=== PATIENT | female | born 1945 | race Caucasian/White ===

== ENCOUNTER 2023-12-26 11:00 | Outpatient (RCR) | payer MEDICARE, SELFPAY | END 2024-01-07 07:55 | disposition home or self-care (01) | LOC: PT 11:00 | PROVIDERS: Visit Provider Orthopaedic Surgery | DX: M25.552 Pain in left hip (principal); Z96.642 Presence of left artificial hip joint | CPT/HCPCS: 97010; 97014; 97110; 97116; 97163; 97164; 97530; G0283 ==

== ENCOUNTER 2025-02-24 12:01 | Outpatient (CLI) | payer MEDICARE, SELFPAY ==
--- OUTSIDE RECORDS SUMMARY | 2025-02-24 12:03 | XMS_ITS | Data Portability ---
Author Organization [facility] Address [address] [place] [address] Assessment Encounter Date Assessment Date Assessment LastModified by Organization Details LastModified Time 07/13/2024 07/13/2024 Patient presente d to office today for their Medicare Annual Wellness Visit. Education was provided on healthy nutrition, including a diet rich in fruits and vegetables, minimizing simple carbohydrates, salt, and saturated fats. Encouraged regular cardiovascular exercise such as walking at least 30 minutes daily, 5 times per week. Emphasized preventive health measures and educated pt on fall prevention and community-based lifestyle interventions to help reduce health risks and promote healthy living. Not available 07/13/2024 09:17:13 Plan of Treatment Reminders Order Date Submit Date Provider Last Modified By Organization Details Last Modified Time Details Appointments None recorded. Lab TSH, ultra-sensi tive, serum 2023 024 [facility], [address] [place], [address], 4 22:06:11 lipid panel, serum 2023 024 [facility] [address] [place], [address], 4 22:06:10 unlisted lab - gabapentin, urine 2023 024 [facility] [address] [place], [address], 4 22:06:11 drug screen, urine 2023 024 [facility]), [address] [place], [address], 4 22:06:08 CBC w/ auto diff 2023 024 [facility] [address] [place], [address], 4 22:06:09 CMP, serum or plasma 2023 024 [facility] [address] [place], [address], 4 22:06:10 Referral None recorded. Procedures None recorded. Surgeries None recorded. Imaging None recorded. Medication Orders levothyroxi ne 50 mcg tablet 2024 025 [facility], [address] [place] [address], [address], 5 09:48:58 citalopram 20 mg tablet 2024 025 [facility], [address] [place] [address], [address], 5 10:32:54 rosuvastati n 20 mg tablet 2024 025 [facility], [address] [place] [address], [address], 5 09:48:59 Depo-Medrol 40 mg/mL suspension for injection 2024 025 [email or web address] Not available 5 15:14:28 diltiazem CD 300 mg capsule,ext ended release 24 hr 2024 025 [facility], [address] [place] [address], [address], 5 09:48:58 valsartan 80 mg tablet 2024 025 [facility], [address] [place] [address], [address], 5 10:32:52 cyanocobala min (vit B-12) 1,000 mcg/mL injection solution 2024 [email or web address] Not available 15:13:20 azithromyci n 250 mg tablet 2024 025 [facility], [address] [place] [address], [address], 5 14:19:40 promethazin e-DM 6.25 mg-15 mg/5 mL oral syrup 2024 025 [facility], [address] [place] [address], [address], 5 16:25:40 gabapentin 400 mg capsule 2024 025 [facility], [address] [place] [address], [address], 5 13:19:06 valsartan 40 mg tablet 2024 025 [facility], [address] [place] [address], [address], 5 16:25:41 levothyroxi ne 50 mcg tablet 2023 024 [facility], [address] [place] [address], [address], 5 12:55:31 rosuvastati n 20 mg tablet 2023 024 [facility], [address] [place] [address], [address], 5 13:19:06 gabapentin 400 mg capsule 2023 024 [facility], [address] [place] [address], [address], 5 14:42:11 valacyclovi r 500 mg tablet 2023 024 [facility], [address] [place] [address], [address], 4 13:06:45 citalopram 20 mg tablet 2023 024 [facility], [address] [place] [address], [address], 4 13:06:46 valsartan 40 mg tablet 2023 024 [facility], [address] [place] [address], [address], 5 15:00:03 diltiazem CD 300 mg capsule,ext ended release 24 hr 2023 024 [facility], [address] [place] [address], [address], 5 10:17:42 gabapentin 400 mg capsule 2023 024 [facility], [address] [place] [address], [address], 4 12:17:47 valacyclovi r 500 mg tablet 2023 024 [facility], [address] [place] [address], [address], 4 17:51:25 Patient TargetsNo targets recorded. Patient Instructions Encounter Date Encounter Id Patient Instructions Last Modified By Organization Details Last Modified Time 07/13/2024 [id number] advance care planning: care instructions Not available 07/13/2024 09:21:50 Discussed and explained advance directives such as standard forms to the patient. Face to face discussion lasted for a duration of _3__ minutes. Not available 07/13/2024 09:18:44 Reason for Referral None Reported. Results Created Date Observation Date Name Description Value Unit Range Abnormal Flag Note LastModifiedBy Organization Detail LastModifiedTime 07/13/20 24 07/15/2024 DRUG PROFI LE,UR ,9 DRUGS ,BUND amphetamines , urine Negati ve NG/mL cutoff =1000 Amphe tamin e test inclu rebekah Amphe tamin e and Metha mphet amine . Not Available [facility] ([facility]) [address] [place], [address], 07/15/2024 22:06:08 07/13/20 24 07/15/2024 DRUG PROFI LE,UR ,9 DRUGS ,BUND barbiturate Negati ve NG/mL cutoff =300 Not Available [facility] ([facility]) [address] [place], [address], 07/15/2024 22:06:08 07/13/20 24 07/15/2024 DRUG PROFI LE,UR ,9 DRUGS ,BUND benzodiazepi luisana Negati ve NG/mL cutoff =300 Not Available [facility] ([facility]) [address] [place], [address], 07/15/2024 22:06:08 07/13/20 24 07/15/2024 DRUG PROFI LE,UR ,9 DRUGS ,BUND cannabinoid Negati ve NG/mL cutoff =50 Not Available [facility] ([facility]) [address] [place], [address], 07/15/2024 22:06:08 07/13/20 24 07/15/2024 DRUG PROFI LE,UR ,9 DRUGS ,BUND cocaine (metab.) Negati ve NG/mL cutoff =300 Not Available [facility] ([facility]) [address] [place], [address], 07/15/2024 22:06:08 07/13/20 24 07/15/2024 DRUG PROFI LE,UR ,9 DRUGS ,BUND opiates Negati ve NG/mL cutoff =300 Opiat e test inclu rebekah Codei ne and Morph ine only. Not Available [facility] ([facility]) [address] [place], [address], 07/15/2024 22:06:08 07/13/20 24 07/15/2024 DRUG PROFI LE,UR ,9 DRUGS ,BUND phencyclidin e Negati ve NG/mL cutoff =25 Not Available [facility] ([facility]) [address] [place], [address], 07/15/2024 22:06:08 07/13/20 24 07/15/2024 DRUG PROFI LE,UR ,9 DRUGS ,BUND methadone screen, urine Negati ve NG/mL cutoff =300 Not Available [facility] ([facility]) [address] [place], [address], 07/15/2024 22:06:08 07/13/20 24 07/15/2024 DRUG PROFI LE,UR ,9 DRUGS ,BUND propoxyphene , urine Negati ve NG/mL cutoff =300 Not Available [facility] ([facility]) [address] [place], [address], 07/15/2024 22:06:08 07/13/20 24 07/14/2024 CBC WITH DIFFE RENTI AL/PL ATELE T WBC 6.9 x10e3 /uL 3.4-10 .8 normal Eff ectiv e Decem elana 2023 [place] [id number] WBC will be made* * non-o rdera ble as a stand -fely e order code. Not Available [facility] ([facility]) [address] [place], [address], 07/15/2024 22:06:09 07/13/20 24 07/14/2024 CBC WITH DIFFE RENTI AL/PL ATELE T RBC 4.55 x10e6 /uL 3.77-5 .28 normal Not Available [facility] ([facility]) [address] [facility], [place], [address], 07/15/2024 22:06:09 07/13/20 24 07/14/2024 CBC WITH DIFFE RENTI AL/PL ATELE T hemoglobin 13.7 g/dL 11.1-1 5.9 normal Not Available [facility] ([facility]) [address] [facility], [place], [address], 07/15/2024 22:06:09 07/13/20 24 07/14/2024 CBC WITH DIFFE RENTI AL/PL ATELE T hematocrit 43.5 % 34.0-4 6.6 normal Not Available [facility] ([facility]) [address] [facility], [place], [address], 07/15/2024 22:06:09 07/13/20 24 07/14/2024 CBC WITH DIFFE RENTI AL/PL ATELE T MCV 96 fL 79-97 normal Not Available [facility] ([facility]) [address] [place], [address], 07/15/2024 22:06:09 07/13/20 24 07/14/2024 CBC WITH DIFFE RENTI AL/PL ATELE T MCH 30.1 pg 26.6-3 3.0 normal Not Available [facility] ([facility]) [address] [place], [address], 07/15/2024 22:06:09 07/13/20 24 07/14/2024 CBC WITH DIFFE RENTI AL/PL ATELE T MCHC 31.5 g/dL 31.5-3 5.7 normal Not Available [facility] ([facility]) [address] [place], [address], 07/15/2024 22:06:09 07/13/20 24 07/14/2024 CBC WITH DIFFE RENTI AL/PL ATELE T RDW 12.9 % 11.7-1 5.4 Not Available [facility] ([facility]) [address] [facility], [place], [address], 07/15/2024 22:06:09 07/13/20 24 07/14/2024 CBC WITH DIFFE RENTI AL/PL ATELE T platelets 377 x10e3 /uL 150-45 0 normal Not Available [facility] ([facility]) [address] [facility], [place], [address], 07/15/2024 22:06:09 07/13/20 24 07/14/2024 CBC WITH DIFFE RENTI AL/PL ATELE T neutrophils 58 % not estab. normal Not Available [facility] ([facility]) [address] [facility], [place], [address], 07/15/2024 22:06:09 07/13/20 24 07/14/2024 CBC WITH DIFFE RENTI AL/PL ATELE T lymphs 27 % not estab. normal Not Available [facility] ([facility]) [address] [facility], [place], [address], 07/15/2024 22:06:09 07/13/20 24 07/14/2024 CBC WITH DIFFE RENTI AL/PL ATELE T monocytes 9 % not estab. normal Not Available [facility] ([facility]) [address] [facility], [place], [address], 07/15/2024 22:06:09 07/13/20 24 07/14/2024 CBC WITH DIFFE RENTI AL/PL ATELE T eos 5 % not estab. normal Not Available [facility] ([facility]) [address] [facility], [place], [address], 07/15/2024 22:06:09 07/13/20 24 07/14/2024 CBC WITH DIFFE RENTI AL/PL ATELE T basos 1 % not estab. 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 0 normal Not Available [facility] ([facility]) [address] [place], [address], 07/15/2024 22:06:09 07/13/20 24 07/14/2024 CBC WITH DIFFE RENTI AL/PL ATELE T lymphs (absolute) 1.9 x10e3 /uL 0.7-3. 1 normal Not Available [facility] ([facility]) [address] [place], [address], 07/15/2024 22:06:09 07/13/20 24 07/14/2024 CBC WITH DIFFE RENTI AL/PL ATELE T monocytes(ab solute) 0.6 x10e3 /uL 0.1-0. 9 normal Not Available [facility] ([facility]) [address] [place], [address], 07/15/2024 22:06:09 07/13/20 24 07/14/2024 CBC WITH DIFFE RENTI AL/PL ATELE T eos (absolute) 0.3 x10e3 /uL 0.0-0. 4 normal Not Available [facility] ([facility]) [address] [place], [address], 07/15/2024 22:06:09 07/13/20 24 07/14/2024 CBC WITH DIFFE RENTI AL/PL ATELE T baso (absolute) 0.1 x10e3 /uL 0.0-0. 2 normal Not Available [facility] ([facility]) [address] [facility], [place], [address], 07/15/2024 22:06:09 07/13/20 24 07/14/2024 CBC WITH DIFFE RENTI AL/PL ATELE T immature granulocytes 0 % not estab. Not Available [facility] ([facility]) [address] [facility], [place], [address], 07/15/2024 22:06:09 07/13/20 24 07/14/2024 CBC WITH DIFFE RENTI AL/PL ATELE T immature grans (abs) 0.0 x10e3 /uL 0.0-0. 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 METAB OLIC PANEL (14) glucose 118 mg/dL 70-99 above high normal Not Available [facility] ([facility]) [address] [facility], [place], [address], 07/15/2024 22:06:10 07/13/20 24 07/14/2024 COMP. METAB OLIC PANEL (14) BUN 10 mg/dL 8-27 normal Not Available [facility] ([facility]) [address] [place], [address], 07/15/2024 22:06:10 07/13/20 24 07/14/2024 COMP. METAB OLIC PANEL (14) creatinine 0.89 mg/dL 0.57-1 .00 normal Not Available [facility] ([facility]) [address] [place] [place], [address], 07/15/2024 22:06:10 07/13/20 24 07/14/2024 COMP. METAB OLIC PANEL (14) eGFR 66 mL/mi n/1.7 3 >59 normal Not Available [facility] ([facility]) [address] [place] [place], [address], 07/15/2024 22:06:10 07/13/20 24 07/14/2024 COMP. METAB OLIC PANEL (14) BUN/creatini ne ratio 11 12-28 below low normal Not Available [facility] ([facility]) [address] [place] [place], [address], 07/15/2024 22:06:10 07/13/20 24 07/14/2024 COMP. METAB OLIC PANEL (14) sodium 138 mmol/ L 134-14 4 normal Not Available [facility] ([facility]) [address] [place] [place], [address], 07/15/2024 22:06:10 07/13/20 24 07/14/2024 COMP. METAB OLIC PANEL (14) potassium 4.5 mmol/ L 3.5-5. 2 normal Not Available [facility] ([facility]) [address] [place], [address], 07/15/2024 22:06:10 07/13/20 24 07/14/2024 COMP. METAB OLIC PANEL (14) chloride 102 mmol/ L 96-106 normal Not Available [facility] ([facility]) [address] [place] [place], [address], 07/15/2024 22:06:10 07/13/20 24 07/14/2024 COMP. METAB OLIC PANEL (14) carbon dioxide, total 22 mmol/ L 20-29 normal Not Available [facility] ([facility]) [address] [place] [place], [address], 07/15/2024 22:06:10 07/13/20 24 07/14/2024 COMP. METAB OLIC PANEL (14) calcium 10.3 mg/dL 8.7-10 .3 normal Not Available [facility] ([facility]) [address] [place] [place], [address], 07/15/2024 22:06:10 07/13/20 24 07/14/2024 COMP. METAB OLIC PANEL (14) protein, total 8.0 g/dL 6.0-8. 5 normal Not Available [facility] ([facility]) [address] [place] [place], [address], 07/15/2024 22:06:10 07/13/20 24 07/14/2024 COMP. METAB OLIC PANEL (14) albumin 4.5 g/dL 3.8-4. 8 normal Not Available [facility] ([facility]) [address] [place] [place], [address], 07/15/2024 22:06:10 07/13/20 24 07/14/2024 COMP. METAB OLIC PANEL (14) globulin, total 3.5 g/dL 1.5-4. 5 Not Available [facility] ([facility]) [address] [place], [address], 07/15/2024 22:06:10 07/13/20 24 07/14/2024 COMP. METAB OLIC PANEL (14) bilirubin, total 0.3 mg/dL 0.0-1. 2 normal Not Available [facility] ([facility]) [address] [place], [address], 07/15/2024 22:06:10 07/13/20 24 07/14/2024 COMP. METAB OLIC PANEL (14) alkaline phosphatase 106 IU/L 44-121 normal Not Available [facility] ([facility]) [address] [place], [address], 07/15/2024 22:06:10 07/13/20 24 07/14/2024 COMP. METAB OLIC PANEL (14) AST (SGOT) 18 IU/L 0-40 normal Not Available [facility] ([facility]) [address] [place] [place], [address], 07/15/2024 22:06:10 07/13/20 24 07/14/2024 COMP. METAB OLIC PANEL (14) ALT (SGPT) 12 IU/L 0-32 normal Not Available [facility] ([facility]) [address] [facility], [place], [address], 07/15/2024 22:06:10 07/13/20 24 07/14/2024 LIPID PANEL cholesterol, total 132 mg/dL 100-19 9 normal Not Available [facility] ([facility]) [address] [place], [address], 07/15/2024 22:06:10 07/13/20 24 07/14/2024 LIPID PANEL triglyceride s 129 mg/dL 0-149 normal Not Available [facility] ([facility]) [address] [place], [address], 07/15/2024 22:06:10 07/13/20 24 07/14/2024 LIPID PANEL HDL cholesterol 50 mg/dL >39 normal Not Available [facility] ([facility]) [address] [place], [address], 07/15/2024 22:06:10 07/13/20 24 07/14/2024 LIPID PANEL VLDL cholesterol heide 23 mg/dL 5-40 Not Available [facility] ([facility]) [address] [place], [address], 07/15/2024 22:06:10 07/13/20 24 07/14/2024 LIPID PANEL LDL chol calc ([facility]) 59 mg/dL 0-99 Not Available [facility] ([facility]) [address] [facility], [place], [address], 07/15/2024 22:06:10 07/13/20 24 07/14/2024 LIPID PANEL LDL calc 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 Problems Name Problem SNOMED Code Status Onset Date Resolution Date Notes Provider Name and Address Organization Details Recorded Time Postherp etic neuralgi a 4278760 Active 2023 Marlene Acosta APRN [address] [place], [address] , [employer] 4 09:18:00 Essentia l hyperten terell 90127318 Active 2023 Marlene Acosta APRN [address] [place], [address] , [employer] 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 5 14:45:49 Gouty arthriti s of right foot 20347877401 39250 Active 2024 Marlene Acosta APRN [address] [place], [address] , [employer] 5 14:46:48 Foot pain 26189366 Active 2024 Marlene Acosta APRN [address] [place], [address] , [employer] 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 2 10:18:55 Iodine deficien cy syndrome 263142224 Completed 201607/16/2022 Problem Code: E01.8; Problem Code Type: ICD-10; PILLO CELESTIN null, [employer] 2 10:18:55 Hypothyr oidism 64604643 Active 2019 Not Available [facility] 2 21:22:01 Mixed hyperlip idemia 136968836 Active 2016 Problem Code: E78.2; Problem Code Type: ICD-10; Not Available [facility] 2 21:22:01 Mild major depressi on, single episode 58732923 Completed 201707/16/2022 Problem Code: F32.0; Problem Code Type: ICD-10; PILLO CELESTIN null, [employer] 2 10:18:55 Otitis externa of bilatera l ears 78975966702 95504 Completed 201907/16/2022 Problem Code: H60.333; Problem Code Type: ICD-10; PILLO TETEJOSEPH null, [employer] 2 10:18:55 Bilatera l earache 189938334 Completed 201711/03/2017 Not Available [facility] 2 21:22:01 Hyperten sive disorder 44822163 Completed 201610/20/2017 Problem Code: I10; Problem Code Type: ICD-10; Not Available [facility] 2 21:22:01 Acute maxillar y sinusiti s 64159081 Completed 201605/19/2017 Problem Code: J01.00; Problem Code Type: ICD-10; Not Available [facility] 2 21:22:01 Acute pharyngi tis 329852487 Completed 201605/19/2017 Problem Code: J02.8; Problem Code Type: ICD-10; Not Available [facility] 2 21:22:01 Mild recurren t major depressi on 00191411 Active 2016 Problem Code: F33.0; Problem Code Type: ICD-10; Not Available [facility] 2 21:22:01 Acute bronchit is 41153389 Completed 201802/29/2020 Problem Code: J20.9; Problem Code Type: ICD-10; Not Available [facility] 2 21:22:01 Seasonal allergic rhinitis 108100889 Completed 202107/16/2022 Problem Code: J30.2; Problem Code Type: ICD-10; PILLO TETECRISSYR null, [employer] 2 10:18:55 Pain of left shoulder joint 94027203845 447230 Completed 202107/16/2022 Problem Code: M25.512; Problem Code Type: ICD-10; PILLO TETECRISSYR null, [employer] 2 10:18:55 Cough 75173634 Completed 201604/03/2017 Problem Code: R05; Problem Code Type: ICD-10; Not Available [facility] 2 21:22:02 Cough 04919359 Completed 201802/29/2020 Problem Code: R05; Problem Code Type: ICD-10; Not Available [facility] 21:22:02 Chest pain 16572358 Completed 201604/19/2017 Problem Code: R07.89; Problem Code Type: ICD-10; Not Available [facility] 21:22:02 General examinat ion of patient Active 2019 Not Available [facility] 21:22:02 Influenz a vaccine needed 21868014320 Completed 202006/06/2021 Problem Code: Z23; Problem Code Type: ICD-10; Not Available [facility] 21:22:02 Influenz a vaccine needed 96149379046 Active 2019 Problem Code: Z23; Problem Code Type: ICD-10; Not Available [facility] 21:22:03 Body mass index 30+ - obesity 952765836 Active 2019 Problem Code: Z68.32; Problem Code Type: ICD-10; Not Available [facility] 21:22:03 Acquired hypothyr oidism 326431770 Active 2017 Problem Code: 244.8; Problem Code Type: ICD-9; Not Available [facility] 21:22:03 Otogenic otalgia 04587292 Completed 201711/03/2017 Problem Code: 388.71; Problem Code Type: ICD-9; Not Available [facility] 21:22:04 Increasi ng frequenc y of cough 60146552 Completed 202107/16/2022 PILLO perea [employer] 10:18:55 Benign essentia l hyperten terell 6759837 Active 2016 Problem Code: 401.1; Problem Code Type: ICD-9; Not Available [facility] 2 21:22:04 Influenz a vaccine needed 98036042717 Completed 201906/06/2021 Problem Code: Z23; Problem Code Type: ICD-10; Not Available [facility] 21:22:05 Problem Notes None recorded. Procedures Surgical History Date Name Laterality Status Provider Name and Address Organization Details Recorded Time 11/18/19 24 Total hip arthroplasty completed Marlene AcostaROSA [address] [place], [address], [employer] 12/08/2023 13:52:38 07/16/20 22 Shave Biopsy completed Marlene ROSA Acosta [address] [place], [address], [employer] 07/16/2022 13:03:12 12/21/19 17 Total hip arthroplasty completed Not Available [facility] 04/30/2022 22:56:34 12/21/19 17 cataract surgery completed Not Available [facility] 01/2022 22:56:34 Imaging Results None recorded. Procedure Notes None recorded. Medical Equipment None Reported. Allergies Allergen ID Allergen Name Allergen Category Reaction Reaction Severity Criticality Documentation Date Start Date Code Code System Note Provider Name and Address Organization Details Recorded Time 41753 Product containin g penicilli n (product) medicatio n Not available Not available Not available 04/30/2022 71062 8001 SNOMED Aller gyCod e: ''; Aller gyNam e: 'Peni cilli ns'; Aller gyCon ceptT ype: ''; Not Available [facility] 22:56:35 Medications Name Sig Start Date Stop Date Status Note LastModified by Organization Details LastModified Time promethazin e-DM 6.25 mg-15 mg/5 mL oral syrup take FIVE ML by MOUTH every FOUR TO SIX hours as needed FOR cough 01/07 completed Not Available Not Available Not Available Depo-Medrol 40 mg/mL suspension for injection Take 1 mL by injection route. 2024 active Not Available Not Available Not Avai lable cetirizine 10 mg tablet Take 1 tablet(s) by mouth daily 05/25 completed Not Available Not Available Not Available azithromyci n 250 mg tablet TAKE 2 TABLETS BY MOUTH ON DAY 1, THEN TAKE 1 TABLET DAILY ON DAYS 2-5 01/07 completed Not Available Not Available Not Available valacyclovi r 1 gram tablet TAKE ONE TABLET THREE TIMES DAILY BY MOUTH FOR 10 DAYS, FOR SHINGLES 04/12 completed Not Available Not Available Not Available diltiazem CD 240 mg capsule,ext ended release 24 hr Take 1 capsule(s ) by mouth daily 01/29 completed Not Available Not Available Not Available meloxicam 15 mg tablet 04/12 completed Not Available Not Available Not Available ondansetron HCl 4 mg tablet 04/12 completed Not Available Not Available Not Available prednisone 20 mg tablet Take 1 tablet every day by oral route with meal for 5 days. 10/20 completed Not Available Not Available Not Available gabapentin 400 mg capsule TAKE ONE CAPSULE BY MOUTH TWICE DAILY FOR shingle pain active Not Available Not Available No t Available prednisone 5 mg tablet 10 pills po today and decrease by one pill each day 12/29 completed Not Available Not Available Not Available valsartan 80 mg tablet TAKE ONE TABLET BY MOUTH EVERY DAY in THE morning, FOR FOR BLOOD PRESSURE active Not Available Not Available No t Available angelitorometho jeremias enesin 10 mg-100 mg/5 mL oral syrup Take 1 teaspoon by mouth q4h prn for cough 12/29 completed Not Available Not Available Not Available valacyclovi r 500 mg tablet Take 1 tablet twice a day by oral route, for shingles. 2023 active Not Available Not Available Not Avai lable ketorolac 30 mg/mL (1 mL) injection solution Inject 1 mL every day by intramusc ular route. 12/07 completed Not Available Not Available Not Available cefadroxil 500 mg capsule 04/12 completed Not Available Not Available Not Available meloxicam 7.5 mg tablet TAKE 1 TABLET EVERY DAY BY ORAL ROUTE NEEDED. 04/12 completed Not Available Not Available Not Available citalopram 20 mg tablet TAKE 1.5 TABLET BY MOUTH EVERY DAY DIRECTED active Not Available Not Available No t Available diltiazem CD 300 mg capsule,ext ended release 24 hr TAKE 1 CAPSULE BY MOUTH EVERY DAY 2024 active Not Available Not Available Not Avai lable benzonatate 100 mg capsule Take 1 capsule by mouth 3 times a day as needed for cough. 10/20 completed Not Available Not Available Not Available doxycycline monohydrate 100 mg capsule TAKE ONE CAPSULE BY MOUTH TWICE DAILY with meals 10/20 completed Not Available Not Available Not Available levothyroxi ne 50 mcg tablet TAKE 1 TABLET (50 MCG) BY ORAL ROUTE ONCE DAILY ON AN EMPTY STOMACH 30 MINUTES BEFORE BREAKFAST 2024 active Not Available Not Available Not Avai lable cyanocobala min (vit B-12) 1,000 mcg/mL injection solution Inject 1 mL every month by subcutane ous route. 2024 active Not Available Not Available Not Avai lable gabapentin 300 mg capsule TAKE ONE CAPSULE THREE TIMES DAILY BY MOUTH WITH MEAL FOR shingle pain 07/13 completed Not Available Not Available Not Available pravastatin 20 mg tablet TAKE 1 TABLET BY MOUTH EVERYDAY AT BEDTIME 07/16 completed Not Available Not Available Not Available Levaquin 500 mg tablet Take 1 tablet(s) by mouth daily for 10 days 12/09 completed Not Available Not Available Not Available albuterol sulfate HFA 90 mcg/actuati on aerosol inhaler Inhale 2 puffs every 4 hours by inhalatio n route as needed. 01/07 completed Not Available Not Available Not Available Naprosyn 500 mg tablet Take 1 tablet(s) by mouth bid 04/19 completed Not Available Not Available Not Available cefdinir 300 mg capsule 2 capsules po after the evening meal, once a day 05/19 completed Not Available Not Available Not Available fluticasone propionate 50 mcg/actuati on nasal spray,suspe nsion 1 spray(s) each nostril bid 12/19 completed Not Available Not Available Not Available doxycycline hyclate 100 mg tablet 12/07 completed Not Available Not Available Not Available Tylenol Extra Strength 500 mg tablet Take 2 tablets every day by oral route. 04/12 completed Not Available Not Available Not Available oxycodone 5 mg tablet 04/12 completed Not Available Not Available Not Available neomycin 3.5 mg/g-polymy porfirio B 10,000 unit/g-dexa meth 0.1 % eye oint apply a small amount to left upper lid 2 to 3 times a day for 2 weeks 04/12 completed Not Available Not Available Not Available neomycin-po lymyxin-hyd rocort 3.5 mg-10,000 unit/mL-1 % ear drops,susp instill 4 drops into both ear(s) by otic route 3 times per day x 1 week 03/02 completed Not Available Not Available Not Available valsartan 40 mg tablet TAKE ONE TABLET BY MOUTH EVERY DAY FOR BLOOD PRESSURE 01/07 completed Not Available Not Available Not Available cyclobenzap rine 5 mg tablet TAKE 1 TABLET 3 TIMES A DAY BY ORAL ROUTE NEEDED. 12/13 completed Not Available Not Available Not Available rosuvastati n 20 mg tablet TAKE 1 TABLET (20 MG) BY ORAL ROUTE ONCE DAILY FOR CHOLESTER OL 2024 active Not Available Not Available Not Avai lable THSC Levothyroxi ne Sodium Take 1 capsule(s ) by mouth daily before breakfast . 12/20 completed Not Available Not Available Not Available diclofenac 1 % topical gel APPLY 2 GRAMS TO THE AFFECTED AREA(S) BY TOPICAL ROUTE 4 TIMES PER DAY 01/07 completed Not Available Not Available Not Available tranexamic acid 650 mg tablet 04/12 completed Not Available Not Available Not Available Lortab 10 mg-325 mg tablet 1 every 4 hours 04/19 completed Not Available Not Available Not Available Shingrix (PF) 50 mcg/0.5 mL intramuscul ar suspension, kit inject 0.5 millilite r (50 mcg) by intramusc ular route once 06/06 completed Not Available Not Available Not Available citalopram 30 mg capsule Take 1 capsule every day by oral route. 04/12 completed Not Available Not Available Not Available Vitals Date Recorded Body height Body mass index (BMI) Body weight Body temperature Heart rate Oxygen saturation Oxygen saturation in Arterial blood by Pulse oximetry Systolic And Diastolic Systolic And Diastolic Systolic And Diastolic Provider Name and Address Organization Details Last Updated DateTime 5 165.1 cm 30.7 kg/m2 25775.7 1 g 98 [degF] 68 /min 95 % 95 % 164/75 mm[Hg] 153/83 mm[Hg] 154/80 mm[Hg] [employer] 5 14:18:22 Date Recorded Body height Body mass index (BMI) Body weight Body temperature Heart rate Oxygen saturation Oxygen saturation in Arterial blood by Pulse oximetry Systolic And Diastolic Systolic And Diastolic Provider Name and Address Organization Details Last Updated DateTime 5 165.1 cm 30.6 kg/m2 30886.5 6 g 98.2 [degF] 69 /min 92 % 92 % 162/53 mm[Hg] 151/65 mm[Hg] [employer] 5 14:33:19 Date Recorded Body height Body mass index (BMI) Body weight Body temperature Heart rate Oxygen saturation Oxygen saturation in Arterial blood by Pulse oximetry Systolic And Diastolic Systolic And Diastolic Systolic And Diastolic Provider Name and Address Organization Details Last Updated DateTime 4 165.1 cm 30.5 kg/m2 38887.8 4 g 98 [degF] 76 /min 93 % 93 % 153/69 mm[Hg] 175/69 mm[Hg] 160/70 mm[Hg] [employer] 4 17:03:14 Date Recorded Body height Body mass index (BMI) Body weight Body temperature Heart rate Oxygen saturation Oxygen saturation in Arterial blood by Pulse oximetry Systolic And Diastolic Systolic And Diastolic Systolic And Diastolic Provider Name and Address Organization Details Last Updated DateTime 4 165.1 cm 30.1 kg/m2 89738.7 8 g 98 [degF] 74 /min 94 % 94 % 187/49 mm[Hg] 178/66 mm[Hg] 159/53 mm[Hg] [employer] 4 09:30:44 Social History Question Answer Notes LastModified by Organizat ion Details LastModified Time Tobacco Smoking Status Never Smoker SocialHis toryQuest ion: 'Tobacco/ Alcohol/S upplement s'; SocialHis toryRespo nse: 'Never Smoker'; Not Available [facility] 04/30/2022 22:56:54 Do You Have An Advance Directive? No Information not available 07/16/2022 Is Your Home Air Conditioned? Yes Information not available 07/16/2022 Are You Blind Or Do You Have Difficulty Seeing? No Information not available 07/16/2022 In The 14 Days Before Symptom Onset, Have You Had Close Contact With A Laboratory-confir med COVID-19 While That Case Was Ill? No Information not available 07/16/2022 In The 14 Days Before Symptom Onset, Have You Had Close Contact With A Person Who Is Under Investigation For COVID-19 While That Person Was Ill? No Information not available 07/16/2022 Have You Been To An Area Known To Be High Risk For COVID-19? No Information not available 07/16/2022 Are You Deaf Or Do You Have Serious Difficulty Hearing? No Information not available 07/16/2022 What Type Of Diet Are You Following? REGULAR Information not available 07/16/2022 Have There Been Any Changes To Your Family Or Social Situation? No Information no t available 07/16/2022 Are There Any Guns Present In Your Home? No Information not available 07/16/2022 Do You Have A Medical Power Of Agile Scrum Master? No Information not available 07/16/2022 What Was The Date Of Your Most Recent Tobacco Screening? 01/07/2025 Information not available 01/07/2025 What Is Your Relationship Status? Information not available 07/16/2022 Do You Use Your Seat Belt Or Car Seat Routinely? Yes Information not available 07/16/2022 Do You Have Smoke And Carbon Monoxide Detectors In Your Home? Yes Information not available 07/16/2022 Are You Passively Exposed To Smoke? No Information no t available 07/16/2022 Are There Any Smokers In Your House? No Information not available 07/16/2022 Do You Use Sunscreen Routinely? No Information not available 07/16/2022 Has Tobacco Cessation Counseling Been Provided? No Information not available 07/16/2022 Have You Recently Traveled Abroad? No Information not available 07/16/2022 Do You Have Difficulty Walking Or Climbing Stairs? No Information not available 07/16/2022 Are You Currently In School? No Information not available 07/16/2022 Do You Have Any Dietary Restrictions? No Information not available 07/16/2022 Sex: Female Functional Status Question Answer Note LastModified by Organizat ion Details LastModified Time Do you use any illicit or recreational drugs? No Information not available 07/16/2022 Do you or have you ever used any other forms of tobacco or nicotine? No Information not available 07/16/2022 What is your level of alcohol consumption? None Information not available 07/16/2022 Are you currently employed? No Information not available 07/16/2022 Do you have transportation difficulties? No Information not available 07/16/2022 Do you have difficulty doing errands alone? No Information not available 07/16/2022 Are you able to care for yourself? Yes Information not available 07/16/2022 Do you have difficulty dressing or bathing? No Information not available 07/16/2022 Mental Status Question Answer Note LastModified by Organization D etails LastModified Time Do you have difficulty concentrating, remembering or making decisions? No Information no t available 07/16/2022 Family History Relationship Description Onset Age of this Age Resolved Age Notes LastModified by Organization Details LastModified Time Unspecified Relation Family history of Depression Relati ve: ''; [email or web address] Not available 04/30/2022 23:01:26 Notes:*Procedure Description : Documented family medical history in mother*Relative: Mother *Procedure Description: Documented family medical history in father*Relative: Father *Procedure Description: Family history of cerebrovascular accident*Relative: Unspecified Relation *Problem: Relative: ''; *Procedure Description: Family history of lymphoma*Relative: Unspecified Relation *Problem: Relative: ''; Medical History Condition Response Hypothyroidism Y High Cholesterol Y Hypertension Y Gynecological History Statement/Question Response Date of Last Pap Smear Most Recent Mammogram Obstetrics History GPAL:G 0 P 0 0 0 0 Immunizations Vaccine Type Date Status Note Provider Nam e and Address Organization Details Recorded Time Influenza, high-dose, quadrivalent, PF 3 completed Marlene Acosta NUTRITION PROGRAM INSTRUCTOR [address] [place], [address], [employer] 07/16/2023 11:55:05 COVID-19, mRNA, LNP-S, PF, junior-sucrose, 30 mcg/0.3 mL 3 completed YOAN EVANS null, [employer] 07/23/2023 09:56:39 Influenza, high-dose, trivalent, PF 4 completed Kamila Gan null, [employer] 06/08/2024 13:38:45 COVID-19, mRNA, LNP-S, PF, 100 mcg/0.5mL dose or 50 mcg/0.25mL dose 1 completed PILLO MYNEAR null, [employer] 07/16/2022 10:17:15 COVID-19, mRNA, LNP-S, PF, 100 mcg/0.5mL dose or 50 mcg/0.25mL dose 1 completed PILLO MYNEAR null, [employer] 07/16/2022 10:17:15 pneumococcal polysaccharide PPV23 0 completed PILLO MYNEAR null, [employer] 07/16/2022 10:17:15 zoster recombinant 2 completed PILLO MYNEAR null, [employer] 07/16/2022 10:17:16 zoster recombinant 1 completed PILLO MYNEAR null, [employer] 07/16/2022 10:17:15 COVID-19, mRNA, LNP-S, PF, 100 mcg/0.5mL dose or 50 mcg/0.25mL dose 2 completed PILLO MYNEAR null, [employer] 07/16/2022 10:17:15 Influenza, split virus, quadrivalent, PF 1 completed PILLO MYNEAR null, [employer] 07/16/2022 10:17:15 Influenza, high-dose, trivalent, PF 1 completed PILLO MYNEAR null, [employer] 07/16/2022 10:17:15 Influenza, split virus, quadrivalent, PF 2 completed PILLO MYNEAR null, [employer] 07/16/2022 10:17:16 COVID-19, mRNA, LNP-S, PF, 100 mcg/0.5mL dose or 50 mcg/0.25mL dose 1 completed PILLO MYNEAR null, [employer] 07/16/2022 10:17:16 Influenza, high-dose, quadrivalent, PF 0 completed PILLO MYNEAR null, [employer] 07/16/2022 10:17:16 COVID-19, mRNA, LNP-S, bivalent, PF, 30 mcg/0.3 mL dose 2 completed Marlene Acosta APRN [address] [place] [address], [phone], [employer] 07/16/2022 16:12:23 Past Encounters Encounter ID Performer Location Encounter Start Date Encounter Closed Date Diagnosis/Indication Diagnosis SNOMED-CT Code Diagnosis ICD10 Code Diagnosis Note [id number] Marlene Acosta APRN [address] [address] 07/16/2022 09:46:43 07/16/2022 11:02:56 Neoplasm of uncertain behavior of skin 64958624 D48.5 Acquired hypothyroidism 322658933 E03.9 Benign ess ential hypertension 3493912 I10 Mixed hyperlipidemia 267 507542 E78.2 Mild recur rent major depression 03094572 F33.0 Administra tion of SARS-CoV-2 mRNA vaccine 5809005644 Z23 Bilateral bursitis of shoulders 7513214065 4299213 M75.52 She declined Physical therapy today [id number] Marlene Acosta APRN [address] [address] 12/13/2022 12:55:32 12/13/2022 13:28:12 Acute bronchitis 88782999 J20.9 Cough The patient presents wet cough. The patient's condition is stable. Based on the findings today we will begin medication therapy. Further workup not needed at this time. Ddx includes: bronchitis . Reviewed symptomati c care instructio ns, the expected course of these illnesses and explained that coughing can persist for some time. Provided precaution s for signs of worsening disease and instructio ns on contacting us if symptoms worsen. [id number] Marlene Acosta APRN [address] [address] 07/14/2023 10:54:17 07/14/2023 12:00:22 Administration of influenza vaccine 82442099 Z23 Acquired hypothyroidism 674762389 E03.9 Continue synthroid Benign ess ential hypertension 1888213 I10 Continue cardizem Mild recur rent major depression 09068310 F33.0 Continue Celexa Mixed hyperlipidemia 267 108369 E78.2 Continue Crestor Adult heal th examination 484399569 Z00.00 Patient presented to office today for their Medicare Annual Wellness Visit. Education was provided on healthy nutrition, including a diet rich in fruits and vegetables , minimizing simple carbohydra cory, salt, and saturated fats. Encouraged regular cardiovasc ular exercise such as walking at least 30 minutes daily, 5 times per week. Emphasized preventive health measures and educated pt on fall prevention and community- based lifestyle interventi ons to help reduce health risks and promote healthy living. Body mass index 30+ - obesity 450525710 Z68.31 Osteoarthr itis of left hip joint 3183998763 56315 M16.12 Likely needs hip replacemen t - will refer to Dr Mily almanza Persistent cough 6545993 02 R05.3 Lungs clear on exam - obtain CXR. Pain of ri ght shoulder joint 9176871605 6383773 M25.511 RICE, x ray. She has full abduction, I suspect it may be tendonitis as pain is over humoral head. [id number] IHSAN HOOD, ENDOSCOPY TECH-BC [address] [address] 07/23/2023 09:42:21 07/23/2023 09:57:58 Active or passive immunization 510262919 Z23 [id number] Marlene Acosta [place] [address] 08/27/2023 14:55:37 08/27/2023 16:11:54 Cough 63016662 R05.9 Acute sinusitis 27420676 J01.90 Patient likely has an acute bacterial sinusitis. Will treat as below. No signs of preseptal or orbital cellulitis , meningismu s, or neurologic changes concerning for intracrani al process. Instructed family to monitor patient closely and call office for any of these symptoms. Supportive care reviewed: raising HOB, humidifier use, saline nasal spray, rest, encourage PO fluids and monitor hydration status, infection control measures. Recommende d acetaminop hen/ibupro fen PRN pain, fever; reviewed appropriat e doses. Follow-up as below. [id number] [place] [address] 10/20/2023 16:51:55 10/20/2023 17:53:12 Fever 800426834 R50.9 Herpes zoster 7297080 B0 2.9 Left eye involvemen t. Start high dose antivirals and gabapentin . Must have eye exam tomorrow. Cool compresses , antipyreti cs for fever control emphasized . 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 Mild recur rent major depression 93042596 F33.0 Increase Celexa to 30 mg daily [id number] [place] [address] 04/12/2024 16:38:43 04/12/2024 17:55:25 Herpes zoster 7427675 B02.9 Continue Valtrex daily for prophylaxi s Post-herpe tic trigeminal neuralgia 66726928 B02.22 Trial gabapentin 400 mg BID. Dillon reviewed. Body mass index 30+ - obesity 140397344 Z68.31 [id number] Sofiya Rocha [address] [address] 06/08/2024 13:27:08 06/08/2024 13:41:45 Administration of influenza vaccine 42278990 Z23 [id number] Marlene Acosta [address] [address] 07/13/2024 08:48:36 07/13/2024 09:50:01 Adult health examination 693900341 Z00.00 Patient presented to office today for their Medicare Annual Wellness Visit. Education was provided on healthy nutrition, including a diet rich in fruits and vegetables , minimizing simple carbohydra cory, salt, and saturated fats. Encouraged regular cardiovasc ular exercise such as walking at least 30 minutes daily, 5 times per week. Emphasized preventive health measures and educated pt on fall prevention and community- based lifestyle interventi ons to help reduce health risks and promote healthy living. Acquired hypothyroidism 845223926 E03.9 Continue synthroid Mild recur rent major depression 06003835 F33.0 Continue Celexa. Mixed hyperlipidemia 267 136136 E78.2 Continue Crestor Postherpet ic neuralgia 9085627 B02.29 Continue gabapentin , Increase the valtrex too 500 mg BID Long-term drug therapy 767470173 Z79.891 Body mass index 30+ - obesity 268014179 Z68.31 Essential hypertension 37533395 I10 Add Valsartan 40 mg daily. Check BP at home 3 days per week. Low salt diet encouraged . [id number] Marlene Acosta [address] [address] 10/12/2024 13:54:55 10/12/2024 16:13:16 Essential hypertension 99575326 I10 Restart Valsartan 40 mg daily. Check BP at home 3 days per week. Low salt diet encouraged . Postherpet ic neuralgia 0731553 B02.29 Increase gabapentin to BID. Left scalp dermatome is affected. DILLON reviewed. Acute righ t otitis media 624731821 H66.91 Patient presents with signs/symp toms of otitis media. Will treat as below. Supportive care reviewed: humidifier use, raise HOB, saline nasal spray, encourage PO fluids. Recommende d acetaminop hen/ibupro fen PRN pain/fever Follow up as below. Acute bronchitis 9966514 2 J20.9 Cough The patient presents wet cough. The patient's condition is stable. Based on the findings today we will begin medication therapy. Further workup not needed at this time. Ddx includes: bronchitis . Reviewed symptomati c care instructio ns, the expected course of these illnesses and explained that coughing can persist for some time. Provided precaution s for signs of worsening disease and instructio ns on contacting us if symptoms worsen. Body mass index 30+ - obesity 642982563 Z68.31 [id number] Marlene Acosta[address] [address] 01/07/2025 13:43:10 01/07/2025 15:03:59 Preventive procedure 674261625 Z00.00 Patient presented to office today for their Medicare Annual Wellness Visit. Education was provided on healthy nutrition, including a diet rich in fruits and vegetables , minimizing simple carbohydra cory, salt, and saturated fats. Encouraged regular cardiovasc ular exercise such as walking at least 30 minutes daily, 5 times per week. Emphasized preventive health measures and educated pt on fall prevention and community- based lifestyle interventi ons to help reduce health risks and promote healthy living. Essential hypertension 43222566 I10 Increase Valsartan to 80 mg daily. Cobalamin deficiency 190 795452 E53.8 Gouty arth ritis of right foot 4627111153 762669 M10.9 Etiology of gout, low purine diet, and increased fluids explained. Mild recur rent major depression 30421998 F33.0 Continue Celexa. Acquired hypothyroidism 820383182 E03.9 Continue synthroid Mixed hyperlipidemia 267 770191 E78.2 Continue Crestor Health Concerns Section Related Observation LastModified by Organization Detai ls LastModified Time None Recorded Concern Status LastModified by Organization Details LastModified Time None Recorded Advance Directives Directive N: Payers Insurance Date Sequence Insurance Name Policy Number Policy Sanders Covered Member ID Sanders Member ID Guarantor Name 01/24/2025 1 [facility] (MEDICARE REPLACEMENT/AD VANTAGE - PPO) [id number] Camila Tafoya [id number] Camila Michelet 06/08/2024 1 [place]MED[place]ARE REPLACEMENT REGIONAL PPO) [id number] Camila H Michelet [id number] Camila Michelet 01/05/2025 [place] [employer] [facility] [id number] Camila H Michelet [id number] Camila Michelet Notes Date Note Type Note Provider Name and Address Organization Details Recorded Time 4 text/html Rash/Skin LesionReported bypatient.Location:scalp; forehead Quality:itchy;painful Severity:moderate Duration:has noted for >3 months Onset/Timing:recurring Context:no new detergents or skin products; no one else with similar rash;scratching Alleviating Factors:nothing gives relief Aggravating Factors:stress Associated Symptoms:no fever; no cold symptoms; no nausea; no vomiting; no diarrhea; no urinary symptoms; no chills; no fatigue; no change in weight Treatment History:other treatment valtrex withNotes:Patient had initial primary outbreak of zoster on left forehead and scalp in September 2023. She has since had mild further intermittent outbreaks - current is mild and scabbed. She has developed post herpetic neuropathy. Constant itching and burning has caused her to scratch a bald area on her scalp. She is unable to rest well due to the pain and itching. Marlene Acosta, NUTRITION PROGRAM INSTRUCTOR [address] [place] [address], [phone], [facility] [employer] 04/15/2024 21:37:29 4 text/html Anxiety/DepressionReported bypatient.Severity:denies suicidal ideations; able to maintain relationships; does not interfere with activities of daily living; symptoms improved Duration:chronic Onset/Timing:gradual Context:family problems Modifying Factors:social support; selective serotonin reuptake inhibitor (SSRI) Associated Symptoms:denies homicidal ideations; no significant weight gain; no significant weight loss; no visual/auditory hallucinations; no delusions; no shortness of breath;anxiety;HTNNotes:Sta ble on Celexa.HyperlipidemiaReport ed bypatient.Duration:chronic Control:usually well controlled Adherence to Treatment Plan:follows recommended diet; exercises; takes medications as prescribed Complications:no coronary artery disease; no peripheral artery disease; no cardiovascular disease Risk Factors:hypertension;obesit y;consumption of saturated fats and trans-fatty acidsNotes:Compliant with CrestorHypertension F/UReported bypatient.Medications:takin g medications as directed; no side effects from medication Lifestyle:regular exercise; limits sodium intake Associated Symptoms:no dizziness; no lightheadedness; no chest pain; no shortness of breath; no palpitations; no edema; no calf pain with exertion; no headacheNotes:BP above goalHypothyroidReported bypatient.Reason for Visit:TSH check/labs Duration:>12 months Associated Symptoms:no weakness; no lightheadedness; no fatigue; no cold intolerance; no constipation; no weight gain; no involuntary weight loss; no dry/coarse skin; no edema; no deepening of the voice; no hoarseness; no goiter; no mass detected; no chest pain; no palpitations Treatment:current T4 dose: 50 mcg; taking medication as prescribedMedicare Annual Wellness VisitReported bypatient.Diet and Nutrition:healthy diet; discussed vitamin and supplement use; discussed portion control; discussed maintaining calcium balance Fracture Risk:no recent explained fracture; no sudden unexplained fractures Physical Activity:exercises on a regular basis; good physical condition; discussed weightbearing activities Depression Risk:no loss of interest in activities; no significant changes in weight; no sleep disturbances or insomnia; no agitation; no loss of energy; no thoughts of suicide;history of mood disorders Orientation:no disorientation to time; no disorientation to date; no disorientation to place Concentration and Memory:no decreased concentrating ability; no memory lapses or loss; does not forget words Speech/Motor difficulties:no speech difficulties; no difficulty expressing formulated concepts; no difficulty with fine manipulative tasks; no difficulty writing/copying; no slowed reaction time; does not knock things over when trying to pick them up Hearing:no loss of hearing Vision:no vision problems Activities of Daily Living:able to bathe with limited or no assistance; able to contol urination and bowels; able to dress with limited or no assistance; able to feed self with limited or no assistance; able to get out of chair or bed with limited or no assistance; able to groom with limited or no assistance; able to toilet with limited or no assistance Instrumental Activities of Daily Living:able to do house work with limited or no assistance; able to grocery shop with limited or no assistance; able to manage medications with limited or no assistance; able to manage money with limited or no assistance; able to prepare meals with limited or no assistance; able to use the phone with limited or no assistance Falls Risk Assessment:no frequent falls while walking; no fall in the past year; no fall since last visit; no dizziness/vertigo Home Safety:reviewed sun protection; no unsafe madhav hazzards; no unsafe stairs; no unsafe gas appliances; working smoke/CO detectors; use of seatbelts; no vision or hearing loss while driving; has hand bars in the bathroom/shower; good lighting in the home; number of motor vehicle accidents 0 Camila continues to struggle with 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 She uses gabapentin prn for the pain and itching. She has scratched a bald spot in her hairline. Marlene Acsota APRN [address] [place], [address], [facility] [employer] [facility]. 07/18/2024 18:23:35 5 text/html CoughReported bypatient.Quality:productiv e Severity:worsening; moderate Duration:subacute (3-8 weeks) Onset/Timing:gradual; becomes worse as the day goes on Context:non-smoker Modifying Factors:OTC medication Associated Symptoms:no fever; no chills; no chest pain; no heartburn; no nausea; no vomiting; no edema; no agitation; no wheezing;sputum production;throat clearing;nasal discharge;tiredness; earacheHypertension F/UReported bypatient.Medications:takin g medications as directed; no side effects from medication Lifestyle:regular exercise; limits sodium intake Associated Symptoms:no dizziness; no lightheadedness; no chest pain; no shortness of breath; no palpitations; no edema; no calf pain with exertion; no headacheNotes:BP above goal Camila continues to struggle with 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 She uses gabapentin prn for the pain and itching. She has scratched a bald spot in her hairline. Marlene Acosta APRN [address] [place], [address], [facility] [employer]. 10/24/2024 20:39:20 5 text/html Anxiety/DepressionReported bypatient.Severity:denies suicidal ideations; able to maintain relationships; does not interfere with activities of daily living; symptoms improved Duration:chronic Onset/Timing:gradual Context:family problems Modifying Factors:social support; selective serotonin reuptake inhibitor (SSRI) Associated Symptoms:denies homicidal ideations; no significant weight gain; no significant weight loss; no visual/auditory hallucinations; no delusions; no shortness of breath;anxiety;HTNNotes:Sta ble on Celexa.HyperlipidemiaReport ed bypatient.Duration:chronic Control:usually well controlled Adherence to Treatment Plan:follows recommended diet; exercises; takes medications as prescribed Complications:no coronary artery disease; no peripheral artery disease; no cardiovascular disease Risk Factors:hypertension;obesit y;consumption of saturated fats and trans-fatty acidsNotes:Compliant with CrestorHypertension F/UReported bypatient.Medications:takin g medications as directed; no side effects from medication Lifestyle:regular exercise; limits sodium intake Associated Symptoms:no dizziness; no lightheadedness; no chest pain; no shortness of breath; no palpitations; no edema; no calf pain with exertion; no headacheNotes:BP above goalHypothyroidReported bypatient.Reason for Visit:TSH check/labs Duration:>12 months Associated Symptoms:no weakness; no lightheadedness; no fatigue; no cold intolerance; no constipation; no weight gain; no involuntary weight loss; no dry/coarse skin; no edema; no deepening of the voice; no hoarseness; no goiter; no mass detected; no chest pain; no palpitations Treatment:current T4 dose: 50 mcg; taking medication as prescribedMedicare Annual Wellness VisitReported bypatient.Diet and Nutrition:healthy diet; discussed vitamin and supplement use; discussed portion control; discussed maintaining calcium balance Fracture Risk:no recent explained fracture; no sudden unexplained fractures Physical Activity:exercises on a regular basis; good physical condition; discussed weightbearing activities Depression Risk:no loss of interest in activities; no significant changes in weight; no sleep disturbances or insomnia; no agitation; no loss of energy; no thoughts of suicide;history of mood disorders Orientation:no disorientation to time; no disorientation to date; no disorientation to place Concentration and Memory:no decreased concentrating ability; no memory lapses or loss; does not forget words Speech/Motor difficulties:no speech difficulties; no difficulty expressing formulated concepts; no difficulty with fine manipulative tasks; no difficulty writing/copying; no slowed reaction time; does not knock things over when trying to pick them up Hearing:no loss of hearing Vision:no vision problems Activities of Daily Living:able to bathe with limited or no assistance; able to contol urination and bowels; able to dress with limited or no assistance; able to feed self with limited or no assistance; able to get out of chair or bed with limited or no assistance; able to groom with limited or no assistance; able to toilet with limited or no assistance Instrumental Activities of Daily Living:able to do house work with limited or no assistance; able to grocery shop with limited or no assistance; able to manage medications with limited or no assistance; able to manage money with limited or no assistance; able to prepare meals with limited or no assistance; able to use the phone with limited or no assistance Falls Risk Assessment:no frequent falls while walking; no fall in the past year; no fall since last visit; no dizziness/vertigo Home Safety:reviewed sun protection; no unsafe madhav hazzards; no unsafe stairs; no unsafe gas appliances; working smoke/CO detectors; use of seatbelts; no vision or hearing loss while driving; has hand bars in the bathroom/shower; good lighting in the home; number of motor vehicle accidents 0 C/o pain, edema, and erythema in MTP of right great toe for 3 days. She denies injury, the pain awakens her at night. Has vit B 12 deficiency and needs B 12 injection. She is mildly fatigued. 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 She uses gabapentin prn for the pain and itching. She has scratched a bald spot in her hairline. Marlene Acosta, ROSA [address] [place], [address], [facility] [employer] 01/21/2025 17:30:34 OBGyn Episode No OBEpisode recorded.
--- NOTE | 2025-02-24 12:04 | XR_ITS ---
FINAL REPORT CLINICAL HISTORY: Left Foot Pain COMPARISON: None FINDINGS: LEFT FOOT Three views of the left foot demonstrate no acute fracture or dislocation. There are mild hypertrophic changes of the 1st MTP joint. Soft tissue edema is noted along the medial aspect of the 1st MTP joint. IMPRESSION: Probable osteoarthritis. No acute bony abnormality. Reviewed, Interpreted and Dictated by Mark Logan MD Transcribed by Angelica Wilson Authenticated and [facility]
--- OUTSIDE RECORDS SUMMARY | 2025-02-24 12:04 | XMS_ITS | Continuity of Care Document ---
Author Organization [facility] [employer] [facility], [place], [facility] Address [address] [place] [id number] Assessment No assessment recorded. Plan of Treatment Reminders Order Date Submit Date Provider Last Modified By Organization Details Last Modified Time Details Appointments None recorded. Lab None recorded. Referral None recorded. Procedures None recorded. Surgeries None recorded. Imaging None recorded. Medication Orders levothyroxi ne 50 mcg tablet 2024 025 [facility], [address] [place] [address], [id number], 5 09:48:58 citalopram 20 mg tablet 2024 025 [facility], [address] [place] [address], [address], 5 10:32:54 rosuvastati n 20 mg tablet 2024 025 [facility], [address] [place] [address], [address], 5 09:48:59 Depo-Medrol 40 mg/mL suspension for injection 2024 025 [email or web address] Not available 15:14:28 diltiazem CD 300 mg capsule,ext ended release 24 hr 2024 025 [facility], [address] [place] [address], [address], 5 09:48:58 valsartan 80 mg tablet 2024 025 [facility], [address] [place] [address], [place], [address], 5 10:32:52 cyanocobala min (vit B-12) 1,000 mcg/mL injection solution 2024 025 [email or web address] Not available 15:13:20 Patient TargetsNo targets recorded. Patient InstructionsNo instructions recorded. Reason for Referral None Reported. Problems Name Problem SNOMED Code Status Onset Date Resolution Date Notes Provider Name and Address Organization Details Recorded Time Postherp etic neuralgi a 4199377 Active 2023 Marlene Acosta APRN [address] [place] [address], [address] , [employer] 4 09:18:00 [facility] hyperten terell 56962341 Active 2023 Marlene Acotsa APRN [address] [place] [address], [address] , [employer] 4 09:26:22 Cobalami n deficien cy 482017300 Active 2024 Marlene Acosta APRN [address] [place] [address], [address] , [employer] 5 14:45:49 Gouty arthriti s of right foot 46724505598 21290 Active 2024 Marlene Acosta APRN [address] [place] [address], [address] , [employer] 5 14:46:48 Foot pain 07889733 Active 2024 Marlene Acosta APRN [address] [place] [address], [address] , [employer] 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 2 10:18:55 Iodine deficien cy syndrome 748962991 Completed 201607/16/2022 Problem Code: E01.8; Problem Code Type: ICD-10; PILLO EPSTEINNEAR null, [employer] 2 10:18:55 Hypothyr oidism 46019569 Active 2019 Not Available [facility] 2 21:22:01 Mixed hyperlip idemia 747940954 Active 2016 Problem Code: E78.2; Problem Code Type: ICD-10; Not Available [facility] 2 21:22:01 Mild major depressi on, single episode 67108292 Completed 201707/16/2022 Problem Code: F32.0; Problem Code Type: ICD-10; PILLO EPSTEINNEAR null, [employer] 2 10:18:55 Otitis externa of bilatera l ears 90256592213 40446 Completed 201907/16/2022 Problem Code: H60.333; Problem Code Type: ICD-10; PILLO EPSTEINNEAR null, [employer] 2 10:18:55 Bilatera l earache 495492307 Completed 201711/03/2017 Not Available [facility] 2 21:22:01 Hyperten sive disorder 74392423 Completed 201610/20/2017 Problem Code: I10; Problem Code Type: ICD-10; Not Available [facility] 2 21:22:01 Acute maxillar y sinusiti s 88961992 Completed 201605/19/2017 Problem Code: J01.00; Problem Code Type: ICD-10; Not Available [facility] 2 21:22:01 Acute pharyngi tis 285545941 Completed 201605/19/2017 Problem Code: J02.8; Problem Code Type: ICD-10; Not Available [facility] 21:22:01 Mild recurren t major depressi on 79583193 Active 2016 Problem Code: F33.0; Problem Code Type: ICD-10; Not Available [facility] 21:22:01 Acute bronchit is 60756274 Completed 201802/29/2020 Problem Code: J20.9; Problem Code Type: ICD-10; Not Available [facility] 2 21:22:01 Seasonal allergic rhinitis 961530810 Completed 202107/16/2022 Problem Code: J30.2; Problem Code Type: ICD-10; PILLO TETEJOSEPH perea, [employer] 10:18:55 Pain of left shoulder joint 73750655978 062956 Completed 202107/16/2022 Problem Code: M25.512; Problem Code Type: ICD-10; PILLO TETEJOSEPH perea, [employer] 10:18:55 Cough 82439189 Completed 201604/03/2017 Problem Code: R05; Problem Code Type: ICD-10; Not Available [facility] 21:22:02 Cough 32105757 Completed 201802/29/2020 Problem Code: R05; Problem Code Type: ICD-10; Not Available [facility] 2 21:22:02 Chest pain 58264248 Completed 201604/19/2017 Problem Code: R07.89; Problem Code Type: ICD-10; Not Available [facility] 2 21:22:02 General examinat ion of patient Active 2019 Not Available [facility] 2 21:22:02 Influenz a vaccine needed 44004954961 06 Completed 202006/06/2021 Problem Code: Z23; Problem Code Type: ICD-10; Not Available [facility] 2 21:22:02 Influenz a vaccine needed 76140694333 06 Active 2019 Problem Code: Z23; Problem Code Type: ICD-10; Not Available [facility] 2 21:22:03 Body mass index 30+ - obesity 425330749 Active 2019 Problem Code: Z68.32; Problem Code Type: ICD-10; Not Available [facility] 2 21:22:03 Acquired hypothyr oidism 928905102 Active 2017 Problem Code: 244.8; Problem Code Type: ICD-9; Not Available [facility] 2 21:22:03 Otogenic otalgia 05690447 Completed 201711/03/2017 Problem Code: 388.71; Problem Code Type: ICD-9; Not Available [facility] 21:22:04 Increasi ng frequenc y of cough 95478204 Completed 202107/16/2022 PILLO perea [employer] 10:18:55 Benign essentia l hyperten terell 6831248 Active 2016 Problem Code: 401.1; Problem Code Type: ICD-9; Not Available [facility] 21:22:04 Influenz a vaccine needed 13344345365 Completed 201906/06/2021 Problem Code: Z23; Problem Code Type: ICD-10; Not Available [facility] 21:22:05 Problem Notes None recorded. Procedures Surgical History Date Name Laterality Status Provider Name and Address Organization Details Recorded Time 11/18/19 24 Total hip arthroplasty completed Marlene Acosta APRN [address] [place], [address], [employer] 12/08/2023 13:52:38 07/16/20 22 Shave Biopsy completed Marlene Acosta APRN [address] [place], [address], [employer] 07/16/2022 13:03:12 12/21/19 17 Total hip arthroplasty completed Not Available [facility] 04/30/2022 22:56:34 12/21/19 17 cataract surgery completed Not Available [facility] 01/2022 22:56:34 Imaging Results None recorded. Procedure Notes None recorded. Medical Equipment None Reported. Allergies Allergen ID Allergen Name Allergen Category Reaction Reaction Severity Criticality Documentation Date Start Date Code Code System Note Provider Name and Address Organization Details Recorded Time 03574 Product containin g penicilli n (product) medicatio n Not available Not available Not available 04/30/2022 63980 8001 SNOMED Aller gyCod e: ''; Aller gyNam e: 'Peni cilli ns'; Aller gyCon ceptT ype: ''; Not Available [facility] 22:56:35 Medications Name Sig Start Date Stop [...] and decrease by one pill each day 03/08/ 2019 05/07 /2019 completed Not Available Not Available Not Available valsartan 80 mg tablet TAKE ONE TABLET BY MOUTH EVERY DAY in THE morning, FOR FOR BLOOD PRESSURE active Not Available Not Available No t Available angelitojayeris jeremias enesin 10 mg-100 mg/5 mL oral [...] Updated DateTime 5 165.1 cm 30.6 kg/m2 84000.5 6 g 98.2 [degF] 69 /min 92 % 92 % 162/53 mm[Hg] 151/65 mm[Hg] PILLO CELESTIN [facility] [employer] [facility]. 5 14:33:19 Social History Question Answer Notes LastModified by Organizat ion Details LastModified Time Tobacco Smoking Status Never Smoker SocialHis toryQuest ion: 'Tobacco/ Alcohol/S upplement s'; SocialHis toryRespo nse: 'Never Smoker'; Not Available [facility] 04/30/2022 22:56:54 Do You Have An Advance [...] Do You Have A Medical Power Of Packager Machine? No Information not available 07/16/2022 What Was [...] Immunizations Vaccine Type Date Status Note Provider Ilya prieto and Address Organization Details Recorded Time Influenza, high-dose, quadrivalent, PF 3 completed Marlene Acosta APRN [address] [place], [address], [facility] [employer] 07/16/2023 11:55:05 COVID-19, mRNA, LNP-S, PF, junior-sucrose, 30 mcg/0.3 mL 3 completed YOAN EVANS null, [employer] 07/23/2023 09:56:39 Influenza, high-dose, trivalent, PF 4 completed Kamila Gan null, [employer] 06/08/2024 13:38:45 COVID-19, mRNA, LNP-S, PF, 100 mcg/0.5mL dose or 50 mcg/0.25mL dose 1 completed PILLO MYNEAR null, [employer] 07/16/2022 10:17:15 COVID-19, mRNA, LNP-S, PF, 100 mcg/0.5mL dose or 50 mcg/0.25mL dose 1 completed PILLO MYNEAR null, [employer] 07/16/2022 10:17:15 pneumococcal polysaccharide PPV23 0 completed PILLO MYNEAR null, [employer] 07/16/2022 10:17:15 zoster recombinant 2 completed PILLO MYNEAR null, [employer] 07/16/2022 10:17:16 zoster recombinant 1 completed PILLO MYNEAR null, [employer] 07/16/2022 10:17:15 COVID-19, mRNA, LNP-S, PF, 100 mcg/0.5mL dose or 50 mcg/0.25mL dose 2 completed PILLO MYNEAR null, [employer] 07/16/2022 10:17:15 Influenza, split virus, quadrivalent, PF 1 completed PILLO MYNEAR null, [employer] 07/16/2022 10:17:15 Influenza, high-dose, trivalent, PF 1 completed PILLO MYNEAR null, [employer] 07/16/2022 10:17:15 Influenza, split virus, quadrivalent, PF 2 completed PILLO MYNEAR null, [employer] 07/16/2022 10:17:16 COVID-19, mRNA, LNP-S, PF, 100 mcg/0.5mL dose or 50 mcg/0.25mL dose 1 completed PILLO MYNEAR null, [employer] 07/16/2022 10:17:16 Influenza, high-dose, quadrivalent, PF 0 completed PILLO MYNEAR null, [employer] 07/16/2022 10:17:16 COVID-19, mRNA, LNP-S, bivalent, PF, 30 mcg/0.3 mL dose 2 completed Marlene Acosta APRN [address] [place] [address], [address], [employer] 07/16/2022 16:12:23 Past Encounters Encounter ID Performer Location Encounter Start Date Encounter Closed Date Diagnosis/Indication Diagnosis SNOMED-CT Code Diagnosis ICD10 Code Diagnosis Note [id number] Marlene Acosta APRN [address] [address] 01/07/2025 13:43:10 01/07/2025 15:03:59 Preventive procedure [id number] Z00.00 Patient presented to office today for [...] risks and promote healthy living. Essential hypertension 47506734 I10 Increase Valsartan to 80 mg daily. Cobalamin deficiency 190 682251 E53.8 Gouty arth ritis of right foot 1034134709 479433 M10.9 Etiology of gout, low purine diet, and increased fluids explained. Mild recur rent major depression 69642645 F33.0 Continue Celexa. Acquired hypothyroidism 005142998 E03.9 Continue synthroid Mixed hyperlipidemia 267 020405 E78.2 Continue Crestor Health Concerns Section Related Observation LastModified by Organization Detai ls LastModified Time None Recorded Concern Status LastModified by Organization Details LastModified Time None Recorded Payers Encounter Date Sequence Insurance Name Policy Number Policy Sanders Covered Member ID Sanders Member ID Guarantor Name 01/07/2025 1 [facility] (MEDICARE REPLACEMENT/A DVANTAGE - PPO) [id number] Camila Tafoya [id number] Camila Tafoya Notes Date Note Type Note Provider Name and Address Organization Details Recorded Time 5 text/html Anxiety/DepressionReported bypatient.Severity:denies suicidal ideations; able [...] in her hairline. Marlene Acosta, ROSA [address] [facility], [place], [address], [facility] [employer] 01/21/2025 17:30:34 OBGyn Episode No OBEpisode recorded.
== END 2025-02-24 23:59 | disposition home or self-care (01) ==
LOC: RAD 12:02
PROVIDERS: PCP Nurse Practitioner Family; Visit Provider Podiatrist
DX: R93.6 Abnormal findings on diagnostic imaging of limbs (principal); M79.672 Pain in left foot
CPT/HCPCS: 73630

== ENCOUNTER 2025-04-07 11:00 | Outpatient (CLI) | payer MEDICARE, SELFPAY ==
--- OUTSIDE RECORDS SUMMARY | 2025-04-07 11:09 | XMS_ITS | Clinical Summary ---
Author Organization [facility] y[facility] Address [address] [place] [id number] Care Team Providers Care External Grinder Tool Name Role Phone Unavailable Primary Care Provider Unavailabl e Social History Tobacco Use Types Packs/Day Years Used Date Smoking Tobacco: Never Assessed Abuse Screen Answer Date Recorded Unsafe at Home or Work/School Not on file Feels Threatened by Someone? Not on file 04/2023 Does Anyone Keep You from Co ntacting Others or Doint Things Outside the Home? Not on file 06/02/2023 Physical Sign of Abuse Present Not on file 1 Housing Stability Answer Date Recorded Current Living Arrangements Not on file 04/2023 Potentially Unsafe Housing Conditions Not on dmitri e 06/02/2023 Family and Community Support Answer Marcial e Recorded Help with Day-to-Day Activities Not on file 06/02/2023 Lonely or Isolated Not on file 06/02/2023 Employment Answer Date Recorded Do you want help finding or keeping work or a ruslan b? Not on file 06/02/2023 Disabilities Answer Date Recorded Concentrating, Remembering, or Making Decisions Difficulty Not on file 06/02/2023 Doing Errands Independently Difficulty Not on fi le 06/02/2023 Education Answer Date Recorded Help with school or training? Not on file Preferred Language Not on file 06/02/2023 Comments Unknown Sex and Gender Information Value Date Recorded Sex Assigned at Not on file Legal Sex Female 12:44 PM EDT Gender Identity Not on file Sexual Orientation Not on file Plan of Treatment Health Maintenance Due Date Last Done Comments ANNUAL PHYSICAL 1945 DXA SCAN 1945 HEPATITIS C SCREENING 1945 TDAP/TD VACCINES (1 - Tdap) 1964 Pneumococcal Vaccine 50+ (1 of 1 - PCV) 11/30/1995 ZOSTER VACCINE (1 of 2) 11/30/1995 RSV Vaccine - Adults (1 - 1-dose 75+ series) 04/07/202 1 COVID-19 Vaccine (2023- season) 2024 INFLUENZA VACCINE 05/25/2025
[2025-04-07 11:46] LABS: Hematocrit 41.8 % (37.0-47.0); Hemoglobin 13.5 g/dL (12.2-16.2); Immature Granulocytes % 0.6 %; Mean Corpuscular HGB Conc 32.3 g/dL (31.8-35.4); Mean Corpuscular Hemoglobin 30.5 pg (27.0-31.2); Mean Corpuscular Volume 94.6 fl (81-99); Nucleated Red Blood Cells % 0 %; Platelet Count 304 K/mm3 (142-424); Red Blood Count 4.42 M/mm3 (4.20-5.40); Red Cell Distribution Width-SD 46.6 fL; White Blood Count 12.4 K/mm3 (4.8-10.8)
[2025-04-07 12:00] LABS: Chloride 104 mmol/L (98-107)
[2025-04-07 12:01] LABS: Potassium 3.8 mmoL/L (3.5-5.1); Sodium 139 mmol/L (136-145)
[2025-04-07 12:03] LABS: Blood Urea Nitrogen 19 mg/dl (7-17); Creatinine,Serum 0.70 mg/dl (0.52-1.04); Estimated Glomerular Filt Rate 81 ml/min (>60); GFR (African American) 98 ML/MIN (>60)
[2025-04-07 12:04] LABS: Alanine Aminotransferase 30 U/L (12-78); Alkaline Phosphatase 95 U/L (38-126); Anion Gap 8.8 mEq/L (5-15); Aspartate Amino Transferase 30 U/L (14-36); Bilirubin,Total 0.4 mg/dl (0.2-1.3); Calcium 9.3 mg/dl (8.4-10.2); Carbon Dioxide 30 mmol/L (22.0-30.0); Glucose 108 mg/dl (74-100); Total Protein,Serum 6.8 g/dl (6.3-8.2)
[2025-04-07 12:21] LABS: C-Reactive Protein 0.4 mg/L (0-4)
[2025-04-07 13:00] LABS: Uric Acid 5.0 mg/dl (2.5-6.2)
[2025-04-07 13:02] LABS: Albumin Level 4.0 g/dl (3.5-5.0); Albumin/Globulin Ratio 1.4 (1.1-1.8); Globulin 2.8 g/dL (1.3-3.2)
== END 2025-04-07 23:59 | disposition home or self-care (01) ==
LOC: LAB 11:00
PROVIDERS: PCP Nurse Practitioner Family; Visit Provider Podiatrist
DX: Z13.89 Encounter for screening for other disorder (principal); M79.606 Pain in leg, unspecified
CPT/HCPCS: 36415; 80053; 84550; 85025; 85651; 86140